=== PATIENT | female | born 2005 | race Caucasian/White ===

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

== ENCOUNTER → 2025-01-04 | Day surgery (SDC) | payer BC ==
[2025-01-04] MEDS: SODIUM CHLORIDE 0.9% 1,000 ML IV SCH (07:03)
[2025-01-04 07:07] VITALS: BP 105/62; PULSE 58; RESP 14; TEMP 98
[2025-01-04] MEDS: IV FLUID CONTINUATION 1,000 ML IV ONE (08:45)
--- NOTE | 2025-01-04 13:50 | P.EPPROC ---
- EP Procedure Note Electrophysiology Procedure Note: Diagnosis Recurrent presyncope EKG shows sinus rhythm normal [place] narrow QRS normal ST segments with early repolarization abnormality normal variant Normal QT interval Tilt table test per protocol Baseline blood pressure 114/63 mmHg, baseline heart rate 57 beats minute Patient was tilted upright on maculas 78 degrees per protocol No significant change in heart rate or blood pressure She complained of being dizzy when she stood was brought upright initially. No symptoms thereafter No evidence for neurocardiogenic syncope or orthostatic intolerance Impression normal heart rate and blood pressure response to upright tilting Normal twelve-lead EKG
== END ==
LOC: CATHEP 06:28
PROVIDERS: ATTEND Internal Medicine Clinical Cardiac Electrophysiology
DX: R55 Syncope and collapse (principal)
CPT/HCPCS: 81025; 93660